=== PATIENT | female | born 1995 | race Caucasian/White ===

== ENCOUNTER 2017-11-19 18:14 | Emergency (ER) | payer OTHER ==
[~2017-11-19] VITALS: Ht 167.6 cm; Wt 74.8 kg
[2017-11-19] MEDS ORDERED: LAMICTAL100 MG PO (18:44)
[2017-11-19] MEDS ORDERED: LAMICTAL150 MG PO (18:44)
== END 2017-11-19 21:35 | disposition home or self-care (01) ==
LOC: ED 18:14
DX: R10.11 Right upper quadrant pain (principal); J45.909 Unspecified asthma, uncomplicated; Z79.899 Other long term (current) drug therapy
CPT/HCPCS: 71046; 76705; 80053; 81001; 83690; 84703; 85025; 96361; 96374; 96375; 99284; J2270; J2405; J7030

== ENCOUNTER 2018-12-22 13:50 | Emergency (ER) | payer OTHER ==
[~2018-12-22] VITALS: Ht 167.6 cm; Wt 74.8 kg
[~2018-12-22 13:50] MED LIST: LAMICTAL100 MG PO; LAMICTAL150 MG PO
--- OUTSIDE RECORDS SUMMARY | 2018-12-22 13:54 | XMS ---
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 Nely VISIT COUNT (12 MO.) 1 JOY Tan TOTAL 1 NOTE: Visits indicate total known visits. ED/UCC VISIT TRACKING (12 MO.) 12/22/2018 13:51 JOY Stein [place] TYPE: Emergency COMPLAINT: - R ABD PAIN/NAUSEA INPATIENT VISIT TRACKING (12 MO.) No inpatient visits to display in this time frame [email or web address]
== END 2018-12-22 17:18 | disposition home or self-care (01) ==
LOC: ED 13:50
DX: R10.9 Unspecified abdominal pain (principal); R11.0 Nausea; J45.909 Unspecified asthma, uncomplicated; Z79.899 Other long term (current) drug therapy
CPT/HCPCS: 80053; 81001; 85025; 96374; 96375; 99284-25; J1885; J2550

== ENCOUNTER 2020-03-22 08:05 | Day surgery (SDC) | payer OTHER ==
[~2020-03-22] VITALS: Ht 167.6 cm; Wt 79.8 kg
--- NOTE | ~2020-03-22 | OR ---
[facility] [address], [place] [address] Draft DATE OF OPERATION: SURGEON: Kali Stephenson DO PREOPERATIVE DIAGNOSES: Dysmenorrhea. POSTOPERATIVE DIAGNOSES: Dysmenorrhea. PROCEDURE PERFORMED: Diagnostic laparoscopy. DRAWER LINER: Angel Fagan MD. ANESTHESIA: General. ESTIMATED BLOOD LOSS: 5 mL. FINDINGS: Scars consistent with history of extensive cutting superficially. These are located on bilateral arms, legs and on her abdomen. Normal external genitalia, vagina, and cervix. On laparoscopy, normal liver, gallbladder, and stomach. Normal pelvis with no evidence of endometriosis. COMPLICATIONS: None. INDICATIONS: Ms. Edwards is a pleasant 24-year-old, G0, P0 white female, who presents with a long history of dysmenorrhea. Symptoms did not improve with OCPs. She does have vaginismus and pelvic spasm on exam. History is consistent with endometriosis and the decision was made to proceed with diagnostic laparoscopy. Risks, benefits, and alternatives were discussed in details. The patient understands and wished to proceed with the procedure. TECHNIQUE: The patient was taken to the operating room. Time-out was performed to confirm correct patient, correct procedure. General anesthesia was adequately established. The patient PATIENT NAME: DAMON EDWARDS OPERATIVE REPORT DATE OF : [birth year] REPORT #: [id number] PHYSICIAN: KALI STEPHENSON DO PCP: GEORGE ROSENBERG MD REPORT IS CONFIDENTIAL AND NOT TO BE RELEASED WITHOUT AUTHORIZATION [facility] [address], [place] [address] Draft was prepped and draped in the dorsal lithotomy position in [facility]. ICPs were on and running and no preoperative antibiotics or heparin were indicated. A Ashraf retractor was placed in the vagina and the anterior lip of the cervix was grasped with an Allis clamp. Normal vagina. External genitalia and cervix were appreciated. Cervix was gently dilated using Hegar dilators. A Hulka uterine manipulator was placed and the surgeon's gloves were changed after insertion of a Wheat catheter. Attention was then turned to the abdomen. The base of the umbilicus was infiltrated with 0.25% Marcaine with epinephrine and a 5 mm stab incision was made at the base of the umbilicus with an 11 blade knife. A 5 mm trocar was then carefully placed under direct visualization without difficulty. Pneumoperitoneum was established and survey of the abdomen and pelvis was then performed. Normal liver, gallbladder, and stomach were appreciated in the upper quadrants. The pelvis was evaluated extensively, shows normal uterus, bilateral tubes and ovaries. Normal pelvic peritoneum, bilateral ovarian fossa, cul-de-sac, and bladder. No evidence of endometriosis was noted. Decision was made to terminate the case. Pneumoperitoneum was reduced and the trocar was removed. Trocar site was repaired using 4-0 Monocryl. The Hulka uterine manipulator was removed and the patient was taken to the PACU in good and stable condition. Sponge and instrument count were correct x2 at the end of the procedure. Dr. Fagan was present and participated in all portions of procedure. DO DIANA Ibarra/COLBY /[id number] Copies: ~ PATIENT NAME: GRACEDAMON ASHU OPERATIVE REPORT DATE OF : [birth year] REPORT #: [id number] PHYSICIAN: KALI STEPHENSON DO PCP: GEORGE ROSENBERG MD REPORT IS CONFIDENTIAL AND NOT TO BE RELEASED WITHOUT AUTHORIZATION
[~2020-03-22 08:05] MED LIST changes: +ORTHO TRI-CYCL1 EACH PO
--- NOTE | 2020-03-22 10:29 | NUR ---
03/22/20 Mona Sadler 1023-PT ARRIVES TO PACU ON 10 L VIA O2. PT NONRESPONSIVE TO VERBAL STIMULUS. JAW THRUST PERFORMED BY DERIC HIDALGO NO FOGGING IN MASK PRESENT. SATS >90%. 1030-JAW THRUST RESUMED BY THIS RN.
--- NOTE | 2020-03-22 11:11 | NUR ---
PT ARRIVES TO DS RM 4 FROM PACU DROWSY. PT AROUSES TO VERBAL STIMULI AND IS ABLE TO ANSWER QUESTIONS. DENIES PAIN OR NAUSEA. PT PROVIDED ICED WATER AND CRACKERS ON BEDSIDE TABLE. CALL LIGHT WITHIN REACH.
[2020-03-22] MEDS ORDERED: MOTRIN IB200 MG PO (11:29)
[2020-03-22] MEDS ORDERED: NORCO 5-325 TA1 EACH PO (11:29)
--- NOTE | 2020-03-22 13:10 | NUR ---
PT RESTING IN BED AWAKE ON ENTRY TO ROOM. PT STATES HAVING URGE TO VOID, SAT UPRIGHT AT SIDE OF BED PRIOR TO STANDING. PT DENIES ANY NAUSEA OR DIZZINESS WITH POSITION CHANGE. STEADY GAIT WITH RN ASSIST TO BATHROOM, ABLE TO VOID 500 MLS YELLOW URINE WITH SMALL BLOOD CLOT PRESENT. PT PROVIDED PERIPAD AND MESH PANTIES. BACK TO ROOM TO GET DRESSED, MOTHER NOTIFIED FOR SAFE RIDE HOME. 1320: DC INSTRUCTIONS PRESENTED TO PT, ALL QUESTIONS ANSWERED. PAIN PRESCRIPTION GIVEN TO MOTHER BY MD AFTER CASE PER REPORT. PT DC'S FROM DS RM 4 VIA WC TO PERSONAL VEHICLE AT MAIN ENTRANCE OF HOSPITAL.
== END 2020-03-22 13:35 | disposition home or self-care (01) ==
LOC: OPS 08:05 → DS 08:05 → OPS 09:15
PROVIDERS: Obstetrics & Gynecology
PROC: 0UJ84ZZ Inspection of Fallopian Tube, Percutaneous Endoscopic Approach (ICD-10-PCS; principal; 2020-03-22 09:15)
DX: N94.6 Dysmenorrhea, unspecified (principal); F32.9 Major depressive disorder, single episode, unspecified; J45.909 Unspecified asthma, uncomplicated; Z79.899 Other long term (current) drug therapy
CPT/HCPCS: J1100; J1885; J2250; J2405; J2704; J2765; J3010; J7121